=== PATIENT | female | born 1985 | race Caucasian/White ===

== ENCOUNTER 2016-11-26 13:52 | Emergency (ER) | payer OTHER ==
[~2016-11-26] VITALS: Ht 154.9 cm; Wt 81.5 kg
[~2016-11-26 13:52] MED LIST: AMOX500T PO; HYDR2.5T PO; IBUP-232 PO; PRED20 PO; RANI150 PO
[2016-11-26 13:56] VITALS: BP 142/92; PULSE 101; RESP 15; TEMP 98.1; O2SAT 97
--- NOTE | 2016-11-26 14:25 | PD ---
HPI Chief Complaint: Related Problem Time Seen by Provider: 14:25 Travel History International Travel<30 days: No Contact w/Intl Traveler<30days: No Traveled to known affect area: No History of Present Illness HPI 31-year-old female with no significant medical history presents to emergency department for evaluation of possible miscarriage. Patient states that her menstrual cycle was 8 days late and she took the test last week that showed that she was . Patient began bleeding 4 days ago. He was light pink initially and then began to have some tissue and clots. She states last evening she passed a large clot and then today as well. She has still been able to wear pantiliners and states she noticeably mostly when she goes to the restroom. She is followed by Dr. Mendoza who did a beta hCG earlier this week but repeat has not been done. Patient does have history of one 10 years ago. She has had intermittent sharp stabbing suprapubic pain. No urinary symptoms. No other symptoms to report. PFSH Past Medical History Medical History: Denies Significant Hx ?: LMP: 10/14/16 Social History Alcohol Use: Yes (social) Tobacco Use: Yes (one pack) Allergies-Medications (Allergen,Severity, Reaction): Coded Allergies: No Known Allergies (Verified , 11/26/16) Reported Meds & Prescriptions Reported Meds & Active Scripts Active Zantac (Ranitidine HCl) 150 Mg Tab 150 Mg PO BID Deltasone (Prednisone) 20 Mg Tab 40 Mg PO DAILY Reported Motrin (Ibuprofen) 600 Mg Tab 600 Mg PO TODAY Lortab 2.5/500 (Acetaminophen/Hydrocodone Bitart) Tab 1 Tab PO TODAY FOR PAIN Amoxicillin 500 Mg Tab 500 Mg PO Q6 Review of Systems Except as stated in HPI: all other systems reviewed are Neg Physical Exam Narrative GENERAL: Well-nourished, well-developed female patient, ambulatory and in no acute distress SKIN: Warm and dry. HEAD: Normocephalic. EYES: No scleral icterus. No injection or drainage. NECK: Supple, trachea midline. No JVD or lymphadenopathy. CARDIOVASCULAR: Elevated rate and rhythm without murmurs, gallops, or rubs. RESPIRATORY: Breath sounds equal bilaterally. No accessory muscle use. Abdomen: Abdomen soft, non-tender, nondistended. Positive bowel sounds. No hepato-splenomegaly, or palpable masses. No guarding. MUSCULOSKELETAL: No cyanosis, or edema. BACK: Nontender without obvious deformity. No CVA tenderness. Data Data Last Documented VS Vital Signs Date Time Temp Pulse Resp B/P Pulse Ox O2 Delivery O2 Flow Rate FiO2 11/26/16 13:56 98.1 101 15 142/92 97 Orders Basic Metabolic Panel (Bmp) (11/26/16 14:25) Beta Hcg (Quant/Titer) (11/26/16 14:25) Complete Blood Count With Diff (11/26/16 14:25) Prothrombin Time / Inr (Pt) (11/26/16 14:25) Act Partial Throm Time (Ptt) (11/26/16 14:25) Urinalysis - C+S If Indicated (11/26/16 14:25) Ed Urine Pregnancytest Poc (11/26/16 14:25) MDM Medical Decision Making Medical Screen Exam Complete: Yes Emergency Medical Condition: Yes Medical Record Reviewed: Yes Differential Diagnosis Threatened versus miscarriage versus vaginal bleeding during versus menses Narrative Course 31-year-old female presents to emergency department for evaluation of vaginal bleeding, possible miscarriage. Workup was initiated in triage. Once a medical bed becomes available, patient will be transferred and care assumed by that provider. Condition: Stable Radha Mark Nov 26, 2016 14:25 Radha Mark Nov 26, 2016 14:25
[2016-11-26 15:14] LABS: AUTOMATED NEUTROPHIL # 6.5 TH/MM3 (1.8-7.7); BASOPHIL # 0.1 TH/MM3 (0-0.2); BASOPHIL % 0.7 % (0.0-2.0); EOSINOPHIL # 0.1 TH/MM3 (0-0.4); EOSINOPHIL % 1.2 % (0.0-4.0); HEMATOCRIT 42.4 % (35.0-46.0); HEMO FLAGS DIFF FINAL; LYMPH % 27.8 % (9.0-44.0); LYMPHOCYTE # 2.9 TH/MM3 (1.0-4.8); MEAN CELL VOLUME 84.3 FL (80.0-100.0); MEAN CORPUSCULAR HEMOGLOBIN 28.7 PG (27.0-34.0); MONO % 7.6 % (0.0-8.0); NEUT % 62.7 % (16.0-70.0); PLATELET COUNT 301 TH/MM3 (150-450); RED BLOOD COUNT 5.04 MIL/MM3 (4.00-5.30); RED CELL DISTRIBUTION WIDTH 13.3 % (11.6-17.2); WHITE BLOOD COUNT 10.3 TH/MM3 (4.0-11.0)
[2016-11-26 15:17] LABS: APTT (PATIENT) 28.5 SEC (24.3-30.1); PROTHROMBIN TIME - PATIENT 11.4 SEC (9.8-11.6)
[2016-11-26 15:21] LABS: BACTERIA, URINE OCC /hpf; BLOOD, URINE LARGE (NEG); COMMENT (UR) CULTURE INDICATED; CULTURE IF INDICATED CULTURE INDICATED; GLUCOSE,URINE NEG (NEG); KETONE, URINE NEG (NEG); MUCUS URINE FEW /lpf (OCC); NITRITE,URINE NEG (NEG); PH, URINE 6.5 (5.0-8.5); SQUAMOUS EPITHELIAL CELL URINE 1 /hpf (0-5); URINE COLOR YELLOW (YELLW/STRAW)
[2016-11-26 15:24] LABS: BICARBONATE 28.3 MEQ/L (21.0-32.0); POTASSIUM 3.7 MEQ/L (3.5-5.1)
[2016-11-26] MEDS ORDERED: ONDANSETRON HCL 4 MG/2 ML VIAL IV PUSH ONE (15:30)
[2016-11-26] MEDS ORDERED: SODIUM CHLOR 0.9% 1000 ML INJ 1,000 ML IV ONE (15:30)
[2016-11-26] MEDS ORDERED: ACETAMINOPHEN 325 MG TAB PO ONE (15:30)
--- NOTE | 2016-11-26 15:51 | PD ---
Physical Exam Narrative I, Dr. Jean Baptiste, have reviewed the advance practice practitioner's documentation and am in agreement, met with the patient face to face, made the diagnosis, and the medical decision making was done by me. *My assessment and Findings: Incomplete vs. complete vs. threatened . 31 who is 6 weeks 1 day by LMP of 10/14/16 presents with vaginal bleeding for 4 days. Pt states there is blood clot but she does not use more than a panty liner a day. Denies any fever, chest pain, sob, vomiting. +Abdominal cramping. Abdominal exam showed soft abdomen with mainly suprapubic tenderness. Some epigastric ttp as well. No rebound tenderness or guarding. No RLQ ttp. Pelvic exam showed +Blood clot in vaginal vault. Cervical os is closed. No CMT or adnexal tenderness bilaterally. Labs reviewed , no leukocytosis. H/H stable at 14.4/42.4. Lipase normal. Abdominal pain improved after acetaminophen. bHCG is 184. Pt states her bHCG was 91 4 days ago. bHCG is increasing but it is not doubling every 2 days. Will have pt follow up with OBGYN in 2 days for repeat bHCG and ultrasound if bHCG is higher. UA showed moderate leukocyte with WBC 17. Pt given macrobid. Pt is O- , given rhogam. Data Data Last Documented VS Vital Signs Date Time Temp Pulse Resp B/P Pulse Ox O2 Delivery O2 Flow Rate FiO2 11/26/16 13:56 98.1 101 15 142/92 97 Orders Basic Metabolic Panel (Bmp) (11/26/16 14:25) Beta Hcg (Quant/Titer) (11/26/16 14:25) Complete Blood Count With Diff (11/26/16 14:25) Prothrombin Time / Inr (Pt) (11/26/16 14:25) Act Partial Throm Time (Ptt) (11/26/16 14:25) Urinalysis - C+S If Indicated (11/26/16 14:25) Ed Urine Pregnancytest Poc (11/26/16 14:25) Urine Culture (11/26/16 14:43) Acetaminophen (Tylenol) (11/26/16 15:30) Ondansetron Inj (Zofran Inj) (11/26/16 15:30) Sodium Chlor 0.9% 1000 Ml Inj (Ns 1000 M (11/26/16 15:30) Type And Screen (11/26/16 15:51) Lipase (11/26/16 16:00) Nitrofurantoin Monohyd Macrocr (Macrobid (11/26/16 16:15) Rhogam Only (11/26/16 16:37) Labs Laboratory Tests Test 11/26/16 11/26/16 11/26/16 14:43 16:25 16:49 White Blood Count 10.3 TH/MM3 Red Blood Count 5.04 MIL/MM3 Hemoglobin 14.4 GM/DL Hematocrit 42.4 % Mean Corpuscular Volume 84.3 FL Mean Corpuscular Hemoglobin 28.7 PG Mean Corpuscular Hemoglobin 34.0 % Concent Red Cell Distribution Width 13.3 % Platelet Count 301 TH/MM3 Mean Platelet Volume 8.0 FL Neutrophils (%) (Auto) 62.7 % Lymphocytes (%) (Auto) 27.8 % Monocytes (%) (Auto) 7.6 % Eosinophils (%) (Auto) 1.2 % Basophils (%) (Auto) 0.7 % Neutrophils # (Auto) 6.5 TH/MM3 Lymphocytes # (Auto) 2.9 TH/MM3 Monocytes # (Auto) 0.8 TH/MM3 Eosinophils # (Auto) 0.1 TH/MM3 Basophils # (Auto) 0.1 TH/MM3 CBC Comment DIFF FINAL Differential Comment Prothrombin Time 11.4 SEC Prothromb Time International 1.0 RATIO Ratio Activated Partial 28.5 SEC Thromboplast Time Urine Color YELLOW Urine Turbidity CLEAR Urine pH 6.5 Urine Specific Patten 1.005 Urine Protein TRACE mg/dL Urine Glucose (UA) NEG mg/dL Urine Ketones NEG mg/dL Urine Occult Blood LARGE Urine Nitrite NEG Urine Bilirubin NEG Urine Urobilinogen LESS THAN 2.0 MG/DL Urine Leukocyte Esterase MOD Urine RBC 53 /hpf Urine WBC 17 /hpf Urine Squamous Epithelial 1 /hpf Cells Urine Bacteria OCC /hpf Urine Mucus FEW /lpf Microscopic Urinalysis Comment CULTURE INDICATED Sodium Level 140 MEQ/L Potassium Level 3.7 MEQ/L Chloride Level 102 MEQ/L Carbon Dioxide Level 28.3 MEQ/L Anion Gap 10 MEQ/L Blood Urea Nitrogen 11 MG/DL Creatinine 0.56 MG/DL Estimat Glomerular Filtration 127 ML/MIN Rate Random Glucose 77 MG/DL Calcium Level 9.4 MG/DL Lipase 136 U/L Human Chorionic Gonadotropin, 184 MIU/ML Quant Blood Type O NEGATIVE Antibody Screen NEGATIVE Blood Bank Comment MDM Supervised Visit with [facility]: Yes Diagnosis Primary Impression: Threatened Additional Impression: UTI (urinary tract infection) Qualified Code: N39.0 - Urinary tract infection with hematuria, site unspecified Patient Instructions: General Instructions Departure Forms: Tests/Procedures Additional Instruction: Please follow up with OBGYN or ED in 2 days for repeat bHCG. Please return to the ED earlier if you have worsening symptoms. Med/Other Pt SpecificInfo: Prescription(s) given Scripts Acetaminophen (Acetaminophen Extra Strength)500 Mg [id number] Mg PO Q6H PRN (PAIN SCALE 1 TO 4) #20 TAB Ref 0 Prov:Lawanda Jean Baptiste DO 11/26/16 Nitrofurantoin Monohydrate Macrocrystals (Macrobid)100 Mg [id number] Mg PO BID 5 Days Ref 0 Prov:Lawanda Jean Baptiste DO 11/26/16 Disposition: 01 DISCHARGE HOME Condition: Stable Lawanda Jean Baptiste DO Nov 26, 2016 15:51
[2016-11-26] MEDS ORDERED: NITROFURANTOIN MONOHYD MACROCR 100 MG CAP PO ONE (16:15)
[2016-11-26] MEDS ORDERED: MACR100C2 PO (17:52)
[2016-11-26] MEDS ORDERED: ACET500T36 PO (17:52)
== END 2016-11-26 19:00 | disposition home or self-care (01) ==
LOC: NEPE 13:52
DX: O20.0 Threatened abortion (principal); O23.31 Infections of other parts of urinary tract in pregnancy, first trimester; Z3A.01 Less than 8 weeks gestation of pregnancy
CPT/HCPCS: 80048; 81001; 83690; 84702; 84703; 85025; 85610; 85730; 86850; 86900; 86901; 87086; 90384; 96372; 96374; 99284; J2405; J7030; J2790